=== PATIENT | female | born 1935 | race Caucasian/White ===

== ENCOUNTER → 2017-10-27 15:52 | Outpatient (CLI) | payer MEDICARE, SELFPAY ==
[2017-10-27 16:11] LABS: Basophils % 0.8 % (0.1-2.0); Eosinophils # 0.1 K/mm3 (0.0-0.4); Eosinophils % 2.4 % (0.1-12.0); Hematocrit 42.2 % (37.0-47.0); Lymphocytes # 1.2 K/mm3 (0.7-4.5); Lymphocytes % 24.5 K/mm3 (10-50); Mean Corpuscular HGB Conc 33.2 g/dL (31.8-35.4); Mean Corpuscular Volume 90.1 fl (81-99); Mean Platelet Volume 8.2 fl (7.4-10.4); Monocytes # 0.3 K/mm3 (0.1-1.0); Monocytes % 6.9 % (1.7-9.3); Neutrophils # 3.3 K/mm3 (1.8-7.8); Neutrophils % 65.4 % (37.0-80.0); Platelet Count 209 K/mm3 (142-424); Red Blood Count 4.69 M/mm3 (4.20-5.40); Red Cell Distribution Width 13.2 % (11.5-17.5)
[2017-10-27 17:16] LABS: Alanine Aminotransferase 29 U/L (12-78); Albumin Level 3.8 gm/dL (3.4-5.0); Albumin/Globulin Ratio 1.1 (1.1-1.8); Alkaline Phosphatase 102 U/L (46-116); Anion Gap 10.8 mEq/L (5-15); Aspartate Amino Transferase 22 U/L (15-37); Bilirubin,Total 0.3 mg/dL (0.2-1.0); Blood Urea Nitrogen 32 mg/dL (7-18); Calcium 9.5 mg/dL (8.5-10.1); Carbon Dioxide 28 mmol/L (21.0-32.0); Chloride 111 mmol/L (98-107); Creatinine,Serum 1.02 mg/dL (0.55-1.02); Estimated Glomerular Filt Rate 52 ml/min (>60); GFR (African American) 63 ML/MIN (>60); Globulin 3.4 gm/dl (1.3-3.2); Glucose 109 mg/dL (74-106); Potassium 4.8 mmoL/L (3.5-5.1); Sodium 145 mmol/L (136-145); Total Protein,Serum 7.2 gm/dL (6.4-8.2)
[2017-10-29 12:41] LABS: Folate >20.0 ng/mL (>3.0); Vitamin B12 1473 pg/mL (232-1245)
== END ==
PROVIDERS: PCP Family Medicine; Visit Provider Specialist
DX: R20.2 Paresthesia of skin (principal); S09.90XA Unspecified injury of head, initial encounter
CPT/HCPCS: 36415; 80053; 82607; 82746; 84443; 85025

== ENCOUNTER → 2017-11-10 08:11 | Outpatient (POV) | payer MEDICARE, SELFPAY | PROVIDERS: Family Provider Family Medicine; PCP Family Medicine; Visit Provider Specialist | DX: R20.2 Paresthesia of skin (principal) | CPT/HCPCS: 95886; 95910 ==

== ENCOUNTER → 2017-11-18 15:46 | Outpatient (CLI) | payer MEDICARE, SELFPAY ==
--- NOTE | 2017-11-18 15:48 | MR_ITS ---
MR cervical spine wo con, MR 3-d myelogram/MRCP HISTORY: PT states neck pain with bilateral hand numbness. ITS.REASON: cervical spondylosis ORDERING PHYSICIAN: Tammie Funk MD PATIENT AGE: 82 years Comparison: None TECHNIQUE: Standard multiplanar multiecho sequences are performed without contrast. 3-D MIP and myelographic images are also rendered and reviewed FINDINGS: There is exaggeration of the cervical lordosis. The craniocervical junction has an unremarkable appearance. C2-C3: Unremarkable. C3-C4: Unremarkable. C4-C5: Minimal bulging disc without impingement or narrowing. C5-C6: There is degenerative disc disease with mild concentric bulging disc along with uncovertebral hypertrophic change with mild resultant bilateral lateral recess narrowing and mild bilateral foraminal narrowing. There is narrowing of the canal at this level. The disc osteophyte complex abuts the cord without significant cord flattening or displacement. C6-C7: Unremarkable. C7-T1: Small central disc protrusion without impingement. IMPRESSION: 1. Degenerative disc disease C5-C6 with mild concentric bulging disc along with uncovertebral hypertrophic change with mild resultant bilateral lateral recess narrowing and mild bilateral foraminal narrowing. There is narrowing of the canal at this level. The disc osteophyte complex abuts the cord without significant cord flattening or displacement 2. Small central disc protrusion C7-T1
== END ==
PROVIDERS: Family Provider Family Medicine; PCP Family Medicine; Visit Provider Specialist
DX: M47.812 Spondylosis without myelopathy or radiculopathy, cervical region (principal); M62.541 Muscle wasting and atrophy, not elsewhere classified, right hand; M62.542 Muscle wasting and atrophy, not elsewhere classified, left hand; M79.601 Pain in right arm; M79.602 Pain in left arm; R20.2 Paresthesia of skin
CPT/HCPCS: 72141; 76376

== ENCOUNTER → 2017-12-18 15:16 | Outpatient (CLI) | payer MEDICARE, SELFPAY ==
[2017-12-18 15:29] LABS: Basophils % 0.7 % (0.1-2.0); Eosinophils # 0.2 K/mm3 (0.0-0.4); Eosinophils % 3.2 % (0.1-12.0); Hematocrit 39.2 % (37.0-47.0); Hemoglobin 13.2 g/dL (12.2-16.2); Lymphocytes # 1.3 K/mm3 (0.7-4.5); Lymphocytes % 25.7 K/mm3 (10-50); Mean Corpuscular HGB Conc 33.6 g/dL (31.8-35.4); Mean Corpuscular Volume 89.4 fl (81-99); Mean Platelet Volume 7.2 fl (7.4-10.4); Monocytes # 0.4 K/mm3 (0.1-1.0); Monocytes % 7.3 % (1.7-9.3); Neutrophils # 3.1 K/mm3 (1.8-7.8); Neutrophils % 63.2 % (37.0-80.0); Platelet Count 181 K/mm3 (142-424); Red Blood Count 4.39 M/mm3 (4.20-5.40); Red Cell Distribution Width 13.1 % (11.5-17.5); White Blood Count 4.9 K/mm3 (4.8-10.8)
--- NOTE | 2017-12-18 15:34 | XR_ITS ---
XR chest 2V HISTORY: Prior wedge resection right lung ITS.REASON: PRE OP ORDERING PHYSICIAN: Jakob Sinclair MD PATIENT AGE: 82 years COMPARISON: 05/01/2011 FINDINGS: Unremarkable cardiovascular structures. There are surgical clips in the right hilum and at the GE junction. There is an old fracture of the right sixth rib. The lungs are free of acute infiltrate. No lobar consolidation or collapse. Mild lower thoracic scoliosis convex right with the thoracic kyphosis and mild wedging of mid dorsal vertebral bodies unchanged. No lobar consolidation or collapse. IMPRESSION: 1. No change with no acute finding. 2. Postsurgical changes
--- NOTE | 2017-12-18 15:36 | XR_ITS ---
XR wrist LT min 3V HISTORY pain ITS.REASON: left wrist pain; carpal tunnel syndrome. ORDERING PHYSICIAN: Jakob Sinclair MD PATIENT AGE: 82 years Comparison: None FINDINGS: There are osteoarthritic changes of the first metacarpal carpal joint. No fracture or dislocation or other significant anomalies. 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
--- NOTE | 2017-12-18 15:36 | XR_ITS ---
XR wrist RT min 3V HISTORY pain ITS.REASON: CARPAL TUNNEL SYNDROME. ORDERING PHYSICIAN: Jakob Sinclair MD PATIENT AGE: 82 years Comparison: None FINDINGS: There are osteoarthritic changes of the radiocarpal joint and first metacarpocarpal joint. Mild chondrocalcinosis of the triangle fibrocartilage with an old fracture versus accessory center of ossification at the ulnar styloid. There is some widening of the distal radius. Has the patient had an old radial fracture? No acute fracture or dislocation. No lytic or blastic change. IMPRESSION: Osteoarthritic changes of the wrist with chondrocalcinosis and suspected old distal radial and ulnar fractures
[2017-12-18 17:49] LABS: Anion Gap 10.9 mEq/L (5-15); Blood Urea Nitrogen 22 mg/dL (7-18); Calcium 9.4 mg/dL (8.5-10.1); Carbon Dioxide 29 mmol/L (21.0-32.0); Chloride 107 mmol/L (98-107); Creatinine,Serum 0.96 mg/dL (0.55-1.02); Estimated Glomerular Filt Rate 56 ml/min (>60); GFR (African American) 67 ML/MIN (>60); Glucose 100 mg/dL (74-106); Potassium 4.9 mmoL/L (3.5-5.1); Sodium 142 mmol/L (136-145)
== END ==
PROVIDERS: PCP Family Medicine; Visit Provider Orthopaedic Surgery
DX: M25.531 Pain in right wrist (principal); M25.532 Pain in left wrist; Z01.818 Encounter for other preprocedural examination
CPT/HCPCS: 36415; 71046; 73110; 80048; 85025; 93005

== ENCOUNTER → 2018-01-06 09:57 | Outpatient (CLI) | payer MEDICARE, SELFPAY ==
[2018-01-06 10:27] LABS: Basophils # 0.1 K/mm3 (0-0.2); Eosinophils # 0.1 K/mm3 (0.0-0.4); Eosinophils % 3.1 % (0.1-12.0); Hemoglobin 13.7 g/dL (12.2-16.2); Lymphocytes % 21.9 % (10-50); Mean Corpuscular HGB Conc 31.8 g/dL (31.8-35.4); Mean Corpuscular Hemoglobin 28.8 pg (27.0-31.2); Mean Corpuscular Volume 90.8 fl (81-99); Mean Platelet Volume 7.6 fl (7.4-10.4); Monocytes # 0.3 K/mm3 (0.1-1.0); Monocytes % 5.8 % (1.7-9.3); Neutrophils # 3.1 K/mm3 (1.8-7.8); Neutrophils % 68.3 % (37.0-80.0); Platelet Count 175 K/mm3 (142-424); Red Blood Count 4.74 M/mm3 (4.20-5.40); Red Cell Distribution Width 13.2 % (11.5-17.5); White Blood Count 4.6 K/mm3 (4.8-10.8)
[2018-01-06 12:08] LABS: Anion Gap 13.6 mEq/L (5-15); Blood Urea Nitrogen 28 mg/dL (7-18); Calcium 9.9 mg/dL (8.5-10.1); Carbon Dioxide 28 mmol/L (21.0-32.0); Chloride 107 mmol/L (98-107); Creatinine,Serum 1.11 mg/dL (0.55-1.02); Estimated Glomerular Filt Rate 47 ml/min (>60); GFR (African American) 57 ML/MIN (>60); Glucose 82 mg/dL (74-106); Potassium 4.6 mmoL/L (3.5-5.1); Sodium 144 mmol/L (136-145)
== END ==
PROVIDERS: Visit Provider Orthopaedic Surgery
DX: Z01.818 Encounter for other preprocedural examination (principal); G56.02 Carpal tunnel syndrome, left upper limb
CPT/HCPCS: 36415; 80048; 85025

== ENCOUNTER → 2018-05-25 08:36 | Outpatient (CLI) | payer MEDICARE, SELFPAY ==
--- NOTE | 2018-05-25 08:47 | XR_ITS ---
XR DEXA axial skeleton HISTORY: ITS.REASON: OSTEOPENIA ORDERING PHYSICIAN: Tutu Rosales MD PATIENT AGE: 82 years COMPARISON: 07/11/2015 FINDINGS: The BMD measured at the tOTAL rIGHT femoral neck is 0.726 g/cm squared with a T score of -2.2. This is considered Osteopenic according to the World Health Organization criteria. Fracture risk is Moderate. Treatment is advised. L1 L4 density has a T score of -0.6 and has increased by 5%. The hip density has decreased by 5.5%. IMPRESSION: Osteopenia with moderate fracture risk. Treatment size. Suggest follow-up exam May 2020
== END ==
PROVIDERS: PCP Family Medicine; Visit Provider Family Medicine
DX: M85.89 Other specified disorders of bone density and structure, multiple sites (principal)
CPT/HCPCS: 77080

== ENCOUNTER → 2019-03-15 10:18 | Outpatient (CLI) | payer MEDICARE, SELFPAY ==
--- NOTE | 2019-03-15 10:21 | MM_ITS ---
PROCEDURE: MM DIG SCREENING MAMM BI W/CAD CLINICAL INDICATION: SCREENING There is no personal or family history of breast cancer. There has been a previous biopsy right breast for benign disease. COMPARISON: DMSB DIG MAMM-SCREEN JITENDRA from 12/13/2014 DMSB DIG MAMM-SCREEN JITENDRA from 12/22/2015 DMSB DIG MAMM-SCREEN JITENDRA W/CAD from 01/10/2017 TECHNIQUE: Standard CC and MLO images and 3D Tomosinthisis was obtained. R2 CAD reviewed. FINDINGS: Moderate diffuse fibroglandular densities are seen throughout both breast slightly more diffuse right breast than left. Again noted is a large coarse benign-appearing calcifications central right breast. There is a small benign-appearing calcification left breast. There is a stable small benign-appearing nodular density inner quadrant right breast. There is no suspicious lesion and no suspicious microcalcifications. IMPRESSION: Moderate breast density with no suspicious lesions seen BI-RAD Category: 2 Benign Finding(s) FOLLOW-UP: 1YR 1 Year Follow-up (A letter has been sent to the patient regarding results of the study.) Dictated by: Dr. Dominik Lopez MD 03/17/2019 08:[address] Dominik Lopez MD in [place] 03/17/2019 08:56
== END ==
PROVIDERS: PCP Family Medicine; Visit Provider Family Medicine
DX: Z12.31 Encounter for screening mammogram for malignant neoplasm of breast (principal)
CPT/HCPCS: 77063; 77067

== ENCOUNTER → 2020-03-17 10:45 | Outpatient (CLI) | payer MEDICARE, SELFPAY ==
--- NOTE | 2020-03-17 10:48 | MM_ITS ---
PROCEDURE: MM DIG SCREENING MAMM BI W/CAD Referring Doctor: Tutu Rosales Patient Age:84Y CLINICAL INDICATION: SCREENING 84-year-old, no new complaints. No hormones Previous right breast excisional biopsy. Family history unremarkable COMPARISON: MG DMSB DIGITAL MAMM-SCREEN BILATERAL from 10/23/2010 MG DMSB DIGITAL MAMM-SCREEN BILATERAL from 11/20/2011 MG DMSB DIG MAMM-SCREEN JITENDRA from 11/25/2012 MG DMSB DIG MAMM-SCREEN JITENDRA from 12/08/2013 MG DMSB DIG MAMM-SCREEN JITENDRA from 12/13/2014 MG DMSB DIG MAMM-SCREEN JITENDRA from 12/22/2015 MG DMSB DIG MAMM-SCREEN JITENDRA W/CAD from 01/10/2017 MG MM DIG SCREENING MAMM BI W/CAD from 03/15/2019 TECHNIQUE: Standard CC and MLO images were obtained. R2 CAD reviewed. Bilateral digital breast tomosynthesis included. FINDINGS: Moderate breast density. No new areas of significant concern No new dominant or suspicious mass.. No suspicious calcifications. No areas highlighted by CAD computer review Right breast no new areas of concern Minor areas of asymmetric density are stable. Dense benign calcifications again noted Left breast. Minimal nodularity on MLO view is been present since 2012 and dissipates on the cc and tomosynthesis views IMPRESSION: Stable bilateral mammogram. Moderately dense breast Bilateral follow-up 1 year recommended BI-RAD Category: 2 Benign Finding(s) FOLLOW-UP: 1YR 1 Year Follow-up (A letter has been sent to the patient regarding results of the study.) Dictated by: Helder Aaron MD 03/22/2020 12:34 Helder Aaron MD in [place] 03/22/2020 12:34
== END ==
PROVIDERS: PCP Family Medicine; Visit Provider Family Medicine
DX: Z12.31 Encounter for screening mammogram for malignant neoplasm of breast (principal)
CPT/HCPCS: 77063; 77067

== ENCOUNTER → 2020-06-08 10:06 | Outpatient (CLI) | payer MEDICARE, SELFPAY ==
--- NOTE | 2020-06-08 10:09 | XR_ITS ---
PROCEDURE: XR DEXA AXIAL SKELETON CLINICAL HISTORY: OSTEOPENIA COMPARISON: CR DEXAAX XR DEXA axial skeleton from 05/25/2018 FINDINGS: The right hip BMD is 0.727 with a T-score of -1.8. The left hip BMD is 0.649 with a T-score of -1.8. The lumbar spine BMD is 0.988 with a T-score of -0.5. Previously the lowest bone density was in the right femoral neck with a T-score -2.2. IMPRESSION: This patient is considered osteopenic according to the World Health Organization criteria. Bone density is between 10 and 25 percent below young normal. Fracture risk is moderate. Treatment is advised. Based on these results a follow-up exam is recommended in 2 year. Dictated by: Giovanni Hinojosa MD 06/09/2020 08:23 Giovanni Hinojosa MD in [place] 06/09/2020 08:23
== END ==
PROVIDERS: PCP Family Medicine; Visit Provider Nurse Practitioner Family
DX: M85.89 Other specified disorders of bone density and structure, multiple sites (principal)
CPT/HCPCS: 77080

== ENCOUNTER 2020-07-16 15:15 | Emergency (ER) | payer MEDICARE, SELFPAY ==
[2020-07-16 15:20] VITALS: BP 148/83; PULSE 88; RESP 16; TEMP 36.6; O2SAT 96; BMI 33.0
[2020-07-16 15:49] VITALS: BP 148/83; PULSE 88; RESP 16; TEMP 36.6; O2SAT 96
--- NOTE | 2020-07-16 16:18 | HMH.EDUTC ---
[facility] [place] Disposition Clinical Impression: Encounter for laboratory testing for COVID-19 virus Disposition: Home, Self-Care Condition on Discharge: Good Instructions: DI for COVID-19 (Suspected or Confirmed ), Preventing the Spread of Coronavirus Discharge Instructions Additional Instructions: You were tested for today for COVID19 your test result should be back in the next 24-48 hours, you may call to the [facility] to see if your test results are back in the next 48 hours [phone] [facility] hours are 9am-9pm You was given a handout with instructions for Self Quarantine and Self isolation for while you wait on test results and what to do if they are positive If you are positive the Health Dept will be contacting you also Referrals: Tutu Rosales MD [Primary Care Provider] - As needed Time of Disposition: 16:19 Medical Decision Making - Leobardo Inquiry Pt receiving controlled substance: No Leobardo was queried for this patient: No Vital Signs: 07/16/20 15:20 07/16/20 15:49 Temperature 97.9 F 97.9 F Temperature Source Oral Pulse Rate 88 Pulse Rate [Left Brachial] 88 Respiratory Rate 16 16 Blood Pressure 148/83 H Blood Pressure [Left Arm] 148/83 H Blood Pressure Mean [Left Arm] 104 Blood Pressure Source [Left Arm] Automatic Cuff Blood Pressure Position [Left Arm] Sitting 02 Sat by Pulse Oximetry 96 Oxygen Delivery Method Room Air Orders (Tests/Meds): ORDERS Category Date Time Status Covid-19 Nasal PCR ([facility]) Routine Lab 07/16/20 15:20 Received [facility] [place] HPI - General Stated complaint: Civid test for surgery ordered By Dr. Godfrey Time Seen by Provider: 07/16/20 15:55 Mode of Arrival: Ambulatory Source of Information: Patient Limitations: No Limitations Description of Symptoms (Recalled from Triage Doc. by RN): PATIENT NEEDING COVID TEST FOR SURGERY HEENT Symptoms (Recalled from RN notes): No Resp Symptoms (Recalled from RN notes): No Skin Symptoms (Recalled from RN notes): No MS Symptoms (Recalled from RN notes): No Functional Status (Recalled from RN notes): WNL - History of Present Illness Provider Complaint: Patient state that she came in today due to needing a COVID test for a procedure she is having later on this week Denies known exposure and denies symptoms - Related Data Home Medications Medication Instructions Recorded Confirmed Rosuvastatin Calcium 10 mg PO DAILY 06/13/17 07/03/20 Sertraline HCl [Zoloft 100mg 100 mg PO DAILY 06/13/17 07/03/20 tablet] lisinopriL [Lisinopril 10mg Tab] 10 mg PO DAILY 06/13/17 07/03/20 Previous Rx's Medication Instructions Recorded sodium,potassium,mag sulfates 17.5 See Rx Instructions PO .COMPLEX 07/03/20 gram-3.13 gram-1.6 gram oral soln #354 ml Allergies Allergy/AdvReac Type Severity Reaction Status Date / Time No Known Allergies Allergy Verified 07/03/20 10:10 - Worker's Comp Is this a Worker's Comp case?: No [facility] History - Hepatitis A Screen Drug use history?: No High risk sexual behaviors?: No History of sexually transmitted infection?: No Currently employed?: No Childcare worker?: No Do you have indoor plumbing?: Yes Do you have electricity?: Yes Attestation statement:: This patient has been screened for Hepatitis A risk factors. I have reviewed the patient's past medical history: Yes Medical History: Reports:: Depression, Hyperlipidemia, Hypertension Denies:: Cancer, Diabetes Mellitus Type 1, Diabetes Mellitus Type 2, Internal Pacemaker, Lung Disease, MRSA, Seizures Other Medical History: Reports: Other. Denies: Blood Transfusion Reaction Comment: Obesity Laterality Cases: Right: Lumpectomy, Bilateral: Carpal Tunnel Release Other Surgeries: Yes: Bariatric Surgery, Cholecystectomy, Colonoscopy, Colon Resection, Hysterectomy-Total, Hysterectomy-Partial, Other. No: Pacemaker Amputation: No Fractures: No Comment: Bilateral ovary cyst, trigger finger - Social History Smoking Status: Never smoker Alcohol Inta
== END 2020-07-16 16:20 | disposition home or self-care (01) ==
PROVIDERS: Emergency Provider Nurse Practitioner; PCP Family Medicine
DX: Z11.52 Encounter for screening for COVID-19 (principal)
CPT/HCPCS: G0463; 99202; U0003

== ENCOUNTER 2020-07-19 08:46 | Day surgery (SDC) | payer MEDICARE, SELFPAY ==
[2020-07-19] VITALS (7 sets, daily range): BP systolic 123–166; BP diastolic 71–84; PULSE 55–77; RESP 18; TEMP 36.2–36.6; O2SAT 95–99; BMI 33.0
--- NOTE | 2020-07-19 09:21 | P.PN_ITS ---
[facility] Anesthesia Checklist - Patient Identification Patient Identification: Arm Band - Structural Data Admitted From: Home Planned Operative Procedure/s: Colonoscopy Consent for Planned Operative Procedure(s) Verified: Yes - NPO Status Verified Time NPO: 00:00 - Additional verifications Anesthesia Reactions: No Hx Blood Transfusions: No Blood Transfusion Reaction: No - Airway Assessment C-Spine Mobility Assessed: Yes TMJ Mobility Assessed: Yes Dentition: Poor Dentition - Neurological Assessment Level of Consciousness: Awake Hx Seizures: No Numbness or tingling in extremities: No - Anesthesia Plan Anesthesia Risk discussed: Yes Anesthesia Plan: Verified ASA Class: II Anesthesia Type: MAC [facility] History I have reviewed the patient's past medical history: Yes Medical History: Reports:: Depression, Hyperlipidemia, Hypertension Denies:: Cancer, Diabetes Mellitus Type 1, Diabetes Mellitus Type 2, Internal Pacemaker, Lung Disease, MRSA, Seizures *Have you ever received a pneumonia vaccine?: Yes *Have you received a flu vaccine this season?: Yes Other Medical History: Reports: Other. Denies: Blood Transfusion Reaction Anesthesia experience/problems:: None Laterality Cases: Right: Lumpectomy, Bilateral: Carpal Tunnel Release, Cataract Other Surgeries: Yes: Bariatric Surgery, Cholecystectomy, Colonoscopy, Colon Resection, Hysterectomy-Total, Hysterectomy-Partial, Other. No: Pacemaker Amputation: No Fractures: No - *Social History Smoking Status: Never smoker Alcohol Intake: never Substance Use Type: denies use *Occupational Status:: retired Housing: house Household Members: spouse *Travel in the last 8 weeks: None - Psychiatric History Pschychiatric History:: Reports:: Depression Family Hx:: No significant family history
--- NOTE | 2020-07-19 10:34 | HMH.SCOPE ---
- Procedure: Date: 07/19/20 Patient Date of :: 1935 Procedure Performed:: Colonoscopy with biopsy Indications:: Patient presents to the office for routine follow-up colonoscopy. She is an 84-year-old female who normally sees Dr. Rosales. 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 Colonoscopy on on 10/22/2016 revealed a sigmoid tubulovillous adenoma. Given this early development of polyp and prior history of colon cancer I had her undergo follow-up colonoscopy on 12/01/2017 which revealed no evidence of any polyps. I had considered a 2-year follow-up. She is without complaints. She denies any rectal bleeding. She does state that her stools are usually firm first thing in the morning and then become looser and watery. Performing Provider:: Jona Godfrey MD Referring Provider:: Alexandro Rosales MD Sedation:: MAC sedation Procedure:: Patient was taken to endoscopy procedure room. She was positioned in a lateral decubitus position. Adequate intravenous sedation was achieved with anesthesia titration of propofol. Variable stiffness Olympus colonoscope was inserted via the anus. There was significant appreciable difficulty advancing the colonoscope past the sigmoid colon of the past approximately 30 to 40 cm from the anal verge. There was some significant tortuosity and almost findings consistent with intermittent volvulus of the sigmoid colon at this location. Ultimately the colonoscope was advanced beyond this and advanced to the ileocolonic anastomosis. There was no evidence of any local recurrence. Colonoscope was slowly withdrawn through the colon with careful surveillance. There was a possible very subtle mucosal irregularity in the descending colon which was biopsied and sent as possible polyp. There were rare diverticuli. Colonoscope was withdrawn. The area of the sigmoid colon that was difficult to traverse was rather difficult to evaluate despite readvancing the colonoscope. Retroflexion within the rectum revealed no evidence of any pathologic internal hemorrhoids. Colonoscope was withdrawn. Findings:: Significant tortuosity of the sigmoid colon, possible intermittent volvulus, difficult to evaluate Nonbleeding AVM sigmoid Possible descending colon polyp Rare diverticuli Recommendations:: No obvious adenomatous polyps. However, given the difficulty evaluating sigmoid colon I will see if she can undergo a contrast enema post procedure for completeness. Complications:: None immediately apparent Estimated blood obtained (mL): 1
--- NOTE | 2020-07-19 10:38 | FL_ITS ---
PROCEDURE: FL BARIUM ENEMA SINGLE CONTRAST CLINICAL INDICATION: COLON CANCER HISTORY, CHANGE IN BOWELS COMPARISON: No exams were available for comparison FINDINGS: Fluoroscopy time: 1 minutes and 45 seconds. Lighting Adviser exam shows sutures in the gastric region and right upper quadrant as well as the right mid abdominal region. There has been a prior right hemicolectomy. The colon is visualized from the rectum to the right hemicolectomy anastomosis with the small bowel. No annular constricting lesions or polypoid filling defects are apparent. No diverticula identified. The anastomosis is widely patent with reflux of contrast into the small bowel. Post evacuation exam is unremarkable IMPRESSION: Status post right hemicolectomy with patent ileocolic anastomosis. Otherwise negative barium enema. Dictated by: Giovanni Hinojosa MD 07/19/2020 15:07 Giovanni Hinojosa MD in [place] 07/19/2020 15:07
== END 2020-07-19 11:23 | disposition home or self-care (01) ==
PROVIDERS: PCP Family Medicine; Visit Provider Surgery
PROC: 0DJD8ZZ Inspection of Lower Intestinal Tract, Via Natural or Artificial Opening Endoscopic (ICD-10-PCS; principal; 2020-07-19 09:30)
DX: Z12.11 Encounter for screening for malignant neoplasm of colon (principal); K57.32 Diverticulitis of large intestine without perforation or abscess without bleeding; Q27.33 Arteriovenous malformation of digestive system vessel; K56.2 Volvulus; K63.89 Other specified diseases of intestine; Z85.030 Personal history of malignant carcinoid tumor of large intestine; Z90.49 Acquired absence of other specified parts of digestive tract; F32.9 Major depressive disorder, single episode, unspecified; E78.5 Hyperlipidemia, unspecified; I10 Essential (primary) hypertension; Z79.899 Other long term (current) drug therapy; Z87.39 Personal history of other diseases of the musculoskeletal system and connective tissue
CPT/HCPCS: 45380; 74280; 88305

== ENCOUNTER → 2021-04-25 10:50 | Outpatient (CLI) | payer MEDICARE, SELFPAY ==
--- NOTE | 2021-04-25 10:55 | MM_ITS ---
PROCEDURE INFORMATION: Exam: MG Bilateral Screening 3D Mammography Exam date and time: 04/25/2021 10:55 AM Age: 85 years old Clinical indication: Encounter for screening mammogram for malignant neoplasm of breast TECHNIQUE: Imaging protocol: Bilateral Screening tomosynthesis and 2D mammography including computer-aided detection (CAD) when performed. COMPARISON: 1. MG MM DIG SCREENING MAMM BI W/CAD 03/17/2020 11:05 AM 2. MG MM DIG SCREENING MAMM BI W/CAD 03/15/2019 10:26 AM 3. MG DMSB DIG MAMM-SCREEN JITENDRA W/CAD 01/10/2017 10:03 AM FINDINGS: MAMMOGRAPHY: Breast composition: The breasts are heterogeneously dense, which may obscure small masses. Mass: No suspicious masses. Architectural distortion: No suspicious distortion. Calcifications: No suspicious calcifications. Asymmetric density: None. Skin thickening: None. Axillary adenopathy: None. IMPRESSION: No mammographic evidence of malignancy. Annual screening is recommended unless otherwise clinically indicated. ASSESSMENT: BI-RADS Category 1: Negative
== END ==
PROVIDERS: PCP Family Medicine; Visit Provider Family Medicine
DX: Z12.31 Encounter for screening mammogram for malignant neoplasm of breast (principal)
CPT/HCPCS: 77063; 77067

== ENCOUNTER → 2021-06-18 13:04 | Outpatient (CLI) | payer MEDICARE, SELFPAY ==
--- NOTE | 2021-06-18 13:15 | XR_ITS ---
FINAL REPORT CLINICAL HISTORY: RT KNEE PAIN- right and left knee pain// osteoarthritis -- patient unable to move knees inward and they are pretty ridged with movement COMPARISON: June 13, 2017 FINDINGS: Three views of the right knee reveal no evidence of fracture or dislocation. The bony alignment is normal. There are moderate degenerative changes, slightly worse. There is medial compartment narrowing. There is lateral meniscal calcification. There is no evidence of joint effusion. No localized soft tissue abnormality is identified. IMPRESSION: Moderate degenerative change, slightly worse. Reviewed, Interpreted and Dictated by Jona Byrd III, MD Transcribed by Mario Almeida Authenticated by Jona Byrd III, MD on 06/18/2021 02:41:[address] [facility]
--- NOTE | 2021-06-18 13:15 | XR_ITS ---
FINAL REPORT CLINICAL HISTORY: LT KNEE PAIN-right and left knee pain// osteoarthritis -- patient unable to move knees inward and they are pretty ridged with movement FINDINGS: LEFT KNEE: Three views of the left knee were obtained. There is no acute fracture or dislocation. There is moderate degenerative change. There is lateral meniscal calcification. There is a small joint effusion. IMPRESSION: Moderate degenerative change with a small joint effusion. Reviewed, Interpreted and Dictated by Jona Byrd III, MD Transcribed by Mario Almeida Authenticated by Jona Byrd III, MD on 06/18/2021 02:41:41 PM [facility]
== END ==
PROVIDERS: PCP Family Medicine; Visit Provider Family Medicine
DX: M25.562 Pain in left knee (principal); M25.561 Pain in right knee
CPT/HCPCS: 73562

== ENCOUNTER → 2021-07-04 12:56 | Outpatient (CLI) | payer MEDICARE, SELFPAY ==
--- NOTE | 2021-07-04 13:00 | XR_ITS ---
FINAL REPORT CLINICAL HISTORY: knee pain FINDINGS: LEFT KNEE: 4 views of the left knee obtained. There is no acute fracture or dislocation. There is mild degenerative change. There are meniscal calcifications. There is no acute soft tissue abnormality. IMPRESSION: Degenerative changes with no acute fracture. Reviewed, Interpreted and Dictated by Jona Byrd III, MD Transcribed by Trinidad Espinoza Authenticated by Jona Byrd III, MD on 07/04/2021 02:26:27 PM [facility]
--- NOTE | 2021-07-04 13:00 | XR_ITS ---
FINAL REPORT CLINICAL HISTORY: knee pain COMPARISON: June 18, 2021 FINDINGS: RIGHT KNEE: 4 views of the right knee obtained. There is no acute fracture or dislocation. There is moderate degenerative change. There is moderate medial compartment joint space narrowing. There are meniscal calcifications. There is varus angulation of the right lower leg. There is a small joint effusion, larger from the prior. There is no acute soft tissue abnormality. IMPRESSION: Varus angulation of the right lower leg. Small joint effusion, larger from prior. Degenerative changes as above. Reviewed, Interpreted and Dictated by Jona Byrd III, MD Transcribed by Trinidad Espinoza Authenticated by Jona Byrd III, MD on 07/04/2021 02:26:26 PM [facility]
== END ==
PROVIDERS: PCP Family Medicine; Visit Provider Orthopaedic Surgery
DX: M25.561 Pain in right knee (principal); M25.562 Pain in left knee
CPT/HCPCS: 73564

== ENCOUNTER → 2022-05-01 13:17 | Outpatient (CLI) | payer MEDICARE, SELFPAY ==
--- NOTE | 2022-05-01 13:21 | MM_ITS ---
PROCEDURE INFORMATION: Exam: MG Bilateral Screening 3D Mammography Exam date and time: 05/01/2022 1:29 PM Age: 86 years old Clinical indication: Screening mammogram TECHNIQUE: Imaging protocol: Bilateral Screening tomosynthesis and 2D mammography including computer-aided detection (CAD) when performed. COMPARISON: 1. MG MM DIG SCREENING MAMM BI W/CAD 04/25/2021 10:49 AM 2. MG MM DIG SCREENING MAMM BI W/CAD 03/17/2020 11:05 AM 3. MG MM DIG SCREENING MAMM BI W/CAD 03/15/2019 10:26 AM 4. MG DMSB DIG MAMM-SCREEN JITENDRA W/CAD 01/10/2017 10:03 AM FINDINGS: MAMMOGRAPHY: Breast composition: There are scattered areas of fibroglandular density. Mass: None. Architectural distortion: No new or suspicious architectural distortion. Calcifications: Stable benign-appearing calcifications are present. No new or suspicious cluster of microcalcifications have developed. Asymmetric density: No new or suspicious asymmetric density is present Skin thickening: None. Axillary adenopathy: None. IMPRESSION: No mammographic evidence of malignancy. Recommend annual screening mammography unless otherwise clinically indicated. ASSESSMENT: BI-RADS category 2: Benign
== END ==
PROVIDERS: PCP Family Medicine; Visit Provider Family Medicine
DX: Z12.31 Encounter for screening mammogram for malignant neoplasm of breast (principal)
CPT/HCPCS: 77063; 77067

== ENCOUNTER 2022-07-21 13:21 | Emergency (ER) | payer MEDICARE, SELFPAY ==
[2022-07-21 13:21] VITALS: BP 144/76; PULSE 94; RESP 16; TEMP 36.6; O2SAT 97; BMI 35.5
--- NOTE | 2022-07-21 13:28 | EXP.UTC ---
Discharge Plan Disposition Patient Disposition: Home, Self-Care Condition: Good Prescriptions Prescriptions: New cephalexin 500 mg capsule 500 mg PO QID Qty: 40 0RF No Action sertraline 100 MG tablet 100 mg PO DAILY lisinopril 10 MG tablet 10 mg PO DAILY rosuvastatin 10 MG tablet 10 mg PO DAILY Referrals Follow up/Referrals: Tutu Rosales MD [Primary Care Provider] - See instructions Activity Restrictions/Add. Instructions Additional Instructions/Restrictions: Keep the wounds clean and dry. Watch the wounds for signs of infection, such as redness, swelling, drainage, fever. etc. Take the antibiotics as directed. Let the steri-strips peel off on their own. Follow up with your regular doctor in 2 to 3 days to have the wounds rechecked. GO TO THE ER FOR ANY WORSENING SYMPTOMS OR CONCERNS. Clinical Impressions Clinical Impression: Skin tear of left lower leg without complication, Need for Tdap vaccination Instructions Patient Instructions: Tetanus, Diphtheria, and Pertussis Vaccine, DI for Avulsion Laceration (Not Requiring Sutures) Discharge ED Provider: Delonte Altman [facility] General Stated complaint: [id number] right leg injury Time Seen by Provider: 07/21/22 13:28 History of Present Illness Provider Complaint: She states that 2 days ago she dropped her water hose nozel and it hit her on the lower part of her left leg. This resulted in her receiving 2 skin tears in the lyles area on that leg. Her tetanus immunization is not up to date. Related Data Home Medications Medication Instructions Recorded Confirmed lisinopril 10 mg tablet 10 mg PO DAILY BLOOD PRESSURE 06/13/17 04/25/22 rosuvastatin 10 mg tablet 10 mg PO DAILY Cholesterol 06/13/17 04/25/22 sertraline 100 mg tablet 100 mg PO DAILY Anxiety 06/13/17 04/25/22 Previous Rx's Medication Instructions Recorded cephalexin 500 mg capsule 500 mg PO QID #40 caps 07/21/22 Allergies Allergy/AdvReac Type Severity Reaction Status Date / Time No Known Allergies Allergy Verified 04/25/22 13:37 [facility] Disclaimer: The information contained in this section may have been updated after the patient was seen, as this information can be updated by other users. Social History Smoking Status: Never smoker second hand exposure: No alcohol intake: never counseling provided: none substance use type: denies use current occupational status: retired Travel in the last 8 weeks: None household members: spouse housing: house current occupational exposures/hazards: No caffeine: No ROS Obtained: Yes All systems reviewed & no additional complaints except as documented Constitutional Constitutional: Denies chills and Denies fever(s) Eyes Eyes: Denies eye discharge ENT Ears, Nose, Mouth, and Throat: Denies dizziness, Denies otalgia and Denies sore throat Cardiovascular Cardiovascular: Denies chest pain Respiratory Respiratory: Denies shortness of breath, Denies chest congestion, Denies cough, Denies stridor and Denies wheezing Gastrointestinal Gastrointestingal: Denies nausea or vomiting Musculoskeletal Musculoskeletal: Reports system reviewed and no additional complaints, except as documented and Denies arthralgias Integumentary/Breasts Skin/Breast: Reports as per HPI Neurologic Neurologic: Denies dizziness and Denies paresthesias Allergic/Immunologic Allergic/Immunologic: Denies wheezing Physical Exam General General appearance: alert and in no apparent distress Head Head exam: atraumatic, normocephalic and normal inspection Eye Eye exam: Present normal appearance, PERRL and EOMI ENT ENT exam: Present normal exam, normal oropharynx, mucous membranes moist, TM's normal bilaterally and normal external ear exam Neck Neck exam: Present normal inspection, full ROM and trachea midline; Absent meningismus or lymphadenopath
[2022-07-21 14:50] VITALS: BP 144/76; PULSE 94; RESP 16; TEMP 36.6; O2SAT 97
== END 2022-07-21 14:51 | disposition home or self-care (01) ==
PROVIDERS: Emergency Provider Nurse Practitioner Family; PCP Family Medicine
DX: S81.812A Laceration without foreign body, left lower leg, initial encounter (principal); W20.8XXA Other cause of strike by thrown, projected or falling object, initial encounter; Z23 Encounter for immunization
CPT/HCPCS: 90715; 96372; 99212; 99214; G0463

== ENCOUNTER → 2023-01-01 13:24 | Outpatient (CLI) | payer MEDICARE, SELFPAY ==
--- NOTE | 2023-01-01 13:31 | CA_ITS ---
FINAL REPORT TECHNIQUE: Multiple transverse and longitudinal images were performed of the right femoral-popliteal deep venous system with augmentation and compression maneuvers. CLINICAL HISTORY: rt leg edema COMPARISON: None FINDINGS: Right lower extremity duplex ultrasound demonstrates normal flow in the deep venous system. There is no abnormal echogenicity to suggest thrombus. There is normal compression and augmentation. IMPRESSION: No evidence of right DVT. Reviewed, Interpreted and Dictated by Aidan Gage MD Transcribed by Trinidad Espinoza Authenticated and [facility]
== END ==
PROVIDERS: PCP Family Medicine; Visit Provider Nurse Practitioner Family
DX: R60.1 Generalized edema (principal)
CPT/HCPCS: 93971